=== PATIENT | male | born 1955 | race Asian ===

== ENCOUNTER 2020-08-26 10:36 | Emergency (ER) | payer MEDICARE ==
[~2020-08-26] VITALS: Ht 172.7 cm; Wt 78.0 kg
[2020-08-26 11:15] LABS: GLUCOMETER DEV NAME(LOC) ERT.5; GLUCOSE,POINT OF CARE 149 MG/DL (70-110)
[2020-08-26] MEDS ORDERED: LIDOCAINE 1% 10 ML VIAL SQ ONE (11:30)
[2020-08-26 12:11] LABS: EOSINOPHILS % (AUTO) 3.9 % (1.0-6.0); HEMATOCRIT 29.6 % (41-53); HEMOGLOBIN 9.9 g/dL (13.5-17.5); LYMPHOCYTES # (AUTO) 0.6 K/uL (1.0-4.8); LYMPHOCYTES % (AUTO) 6.4 % (22.0-44.0); MEAN CORPUSCULAR HEMOGLOBIN 29.7 pg (26.0-34.0); MEAN CORPUSCULAR HGB CONC 33.3 G/dL (31.0-37.0); MEAN CORPUSCULAR VOLUME 89 fL (80-100); MONOCYTES # (AUTO) 0.6 K/uL (0.1-1.0); MONOCYTES % (AUTO) 6.8 % (2.0-9.0); NEUTROPHILS # (AUTO) 7.6 K/uL (1.8-7.7); NEUTROPHILS % (AUTO) 81.9 % (40.0-70.0); PLATELET COUNT (AUTO) 295 K/uL (150-450); RED BLOOD CELL COUNT(AUTO) 3.32 MIL/uL (4.50-5.90)
[2020-08-26 12:37] LABS: CALCIUM, TOTAL 8.9 mg/dL (8.8-10.5); CREATININE 4.85 mg/dL (0.60-1.30); POTASSIUM 3.9 mmol/L (3.5-5.1)
[2020-08-26 13:00] VITALS: BP 140/78
== END 2020-08-26 13:59 | disposition home or self-care (01) ==
LOC: EMS 10:41
DX: T82.838A Hemorrhage due to vascular prosthetic devices, implants and grafts, initial encounter (principal); E11.9 Type 2 diabetes mellitus without complications; Y83.8 Other surgical procedures as the cause of abnormal reaction of the patient, or of later complication, without mention of misadventure at the time of the procedure; Y82.8 Other medical devices associated with adverse incidents
CPT/HCPCS: 36415; 80048; 82962; 85025; 99283; J3490